=== PATIENT | male | born 1990 | race Caucasian/White ===

== ENCOUNTER 2016-09-20 17:42 | Outpatient (CLI) | payer SELFPAY | END 2016-09-20 17:43 | disposition EMS.NT | LOC: EMS 17:42 | PROVIDERS: ATTEND Surgery | DX: S31.110A Laceration without foreign body of abdominal wall, right upper quadrant without penetration into peritoneal cavity, initial encounter (principal); V49.50XA Passenger injured in collision with unspecified motor vehicles in traffic accident, initial encounter; Y92.413 State road as the place of occurrence of the external cause ==

== ENCOUNTER 2016-09-21 10:13 | Emergency (ER) | payer OTHER ==
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
--- NOTE | 2016-09-21 13:09 | XRAY Preliminary Report ---
Exam: XR Lumbar Spine 2 View IMPRESSION: No fracture or subluxation of lumbar spine. [facility] SITE ID: [id number]
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
[2016-09-21 13:25] VITALS: BP 134/72
== END 2016-09-21 13:27 | disposition home or self-care (01) ==
LOC: ED 10:13
DX: S39.012A Strain of muscle, fascia and tendon of lower back, initial encounter (principal); V53.5XXA Driver of pick-up truck or van injured in collision with car, pick-up truck or van in traffic accident, initial encounter; Y92.488 Other paved roadways as the place of occurrence of the external cause; R03.0 Elevated blood-pressure reading, without diagnosis of hypertension
CPT/HCPCS: 72100; 99283